=== PATIENT | male | born 1955 | race African-American/Black ===

== ENCOUNTER 2017-10-01 13:25 | Emergency (ER) | payer MEDICAID ==
[~2017-10-01] VITALS: Ht 177.8 cm; Wt 98.0 kg
[2017-10-01] MEDS ORDERED: MOME13HF2 IH (13:34)
[2017-10-01] MEDS ORDERED: IPRATROPIUM BROMIDE (0.02%) 0.5MG/2.5ML NEB HHN STA (14:37)
[2017-10-01] MEDS ORDERED: ALBUTEROL (0.083%) 2.5MG/3ML NEB HHN STA (14:37)
[2017-10-01] MEDS ORDERED: KETOROLAC 60MG/2ML VIAL IM STA (14:37)
[2017-10-01 14:46] VITALS: BP 152/92
[2017-10-01 15:30] LABS: BASOPHILS % 0.7 % (0.0-2.0); EOSINOPHILS % 1.5 % (0.0-5.0); HEMATOCRIT. 40.4 % (42.0-52.0); LYMPHOCYTES % 30.4 % (20.0-50.0); MEAN CORPUSCULAR HEMOGLOBIN 31.7 pg (28.0-32.0); MEAN CORPUSCULAR VOLUME 91.3 fL (80.0-94.0); MEAN PLATELET VOLUME 7.8 fl (7.4-10.4); MONOCYTES % 12.6 % (2.0-8.0); NEUTROPHILS % 54.8 % (40.0-76.0); PLATELET 186 x1000/uL (130-400); RED BLOOD CELL COUNT 4.43 mill/uL (4.7-6.1)
[2017-10-01 15:43] LABS: TROPONIN I 0.03 ng/mL (0.00-0.04)
== END 2017-10-01 17:06 | disposition home or self-care (01) ==
LOC: ER 14:48
DX: S39.012A Strain of muscle, fascia and tendon of lower back, initial encounter (principal); S20.219A Contusion of unspecified front wall of thorax, initial encounter; J45.901 Unspecified asthma with (acute) exacerbation; V89.2XXA Person injured in unspecified motor-vehicle accident, traffic, initial encounter; Y93.89 Activity, other specified; Y99.8 Other external cause status; Y92.410 Unspecified street and highway as the place of occurrence of the external cause
CPT/HCPCS: 36415; 71046; 72100; 80048; 84484; 85025; 93005; 94640; 96372; 99285; J1885; J7611

== ENCOUNTER 2017-10-31 20:41 | Emergency (ER) | payer MEDICAID ==
[~2017-10-31] VITALS: Ht 177.8 cm; Wt 85.0 kg
[~2017-10-31 20:41] MED LIST: MOME13HF2 IH
[2017-10-31 22:07] LABS: BASOPHILS % 0.7 % (0.0-2.0); EOSINOPHILS % 0.8 % (0.0-5.0); HEMATOCRIT. 40.9 % (42.0-52.0); LYMPHOCYTES % 18.8 % (20.0-50.0); MEAN CORPUSCULAR HEMOGLOBIN 31.1 pg (28.0-32.0); MEAN CORPUSCULAR VOLUME 91.2 fL (80.0-94.0); MEAN PLATELET VOLUME 7.1 fl (7.4-10.4); MONOCYTES % 7.7 % (2.0-8.0); PLATELET 306 x1000/uL (130-400); RED BLOOD CELL COUNT 4.49 mill/uL (4.7-6.1); RED CELL DISTRIBUTION WIDTH 13.6 % (11.6-14.6)
[2017-10-31 22:16] LABS: CHLORIDE 105 mEq/L (98-107)
[2017-11-01] MEDS ORDERED: SODIUM CHLORIDE 0.9% 1,000 ML IV SCH (00:18)
[2017-11-01] MEDS ORDERED: IPRATROPIUM/ALBUTEROL 0.5-3(2.5)MG/3ML NEB INH PRN (00:30)
[2017-11-01] MEDS ORDERED: MAGNESIUM/ALUMINUM HYDROXIDE/SIMETHICONE 30ML UDC PO PRN (00:30)
[2017-11-01] MEDS ORDERED: ACETAMINOPHEN 325MG TABLET PO PRN (00:30)
[2017-11-01] MEDS ORDERED: HYDROCODONE/ACETAMINOPHEN 5/325MG TABLET PO PRN (00:30)
[2017-11-01] MEDS ORDERED: LORAZEPAM 2MG/ML CPJ IV PRN (00:30)
[2017-11-01] MEDS ORDERED: ONDANSETRON HCL 4MG/2ML VIAL IV PRN (00:30)
[2017-11-01] MEDS ORDERED: CLONIDINE 0.1MG TABLET PO PRN (00:30)
[2017-11-01] MEDS ORDERED: ENOXAPARIN 40MG/0.4ML SYR SUBCUT SCH (00:30)
[2017-11-01 01:03] VITALS: BP 127/80
[2017-11-01] MEDS ORDERED: ASPIRIN 81MG TABLET PO ONE (01:15)
[2017-11-01] MEDS ORDERED: ASPIRIN 81MG EC TABLET PO SCH (09:00)
== END 2017-11-01 01:18 | disposition left against medical advice (07) ==
LOC: ER 20:41 → CANBEDREQ 11-01 03:59
DX: R55 Syncope and collapse (principal); I10 Essential (primary) hypertension; J45.909 Unspecified asthma, uncomplicated
CPT/HCPCS: 36415; 70450; 71045; 80048; 83880; 84484; 85025; 93005; 99285; J7030

== ENCOUNTER 2022-09-27 19:40 | Emergency (ER) | payer BC, MEDICAID ==
[~2022-09-27] VITALS: Ht 170.2 cm; Wt 76.0 kg
[~2022-09-27 19:40] MED LIST changes: +CARV12.545 PO; +LISI10TA26 PO; -MOME13HF2 IH
[2022-09-27] MEDS ORDERED: PREDNISONE 20MG TABLET PO STA (23:32)
[2022-09-27] MEDS ORDERED: IPRATROPIUM BROMIDE (0.02%) 0.5MG/2.5ML NEB HHN STA (23:32)
[2022-09-27] MEDS ORDERED: ALBUTEROL (0.083%) 2.5MG/3ML NEB HHN STA (23:32)
[2022-09-27] MEDS ORDERED: FUROSEMIDE 20MG TABLET PO ONE (23:45)
[2022-09-28] MEDS ORDERED: FUROSEMIDE 20MG TABLET PO NR (00:45)
[2022-09-28 01:30] VITALS: BP 143/97
== END 2022-09-28 02:05 | disposition left against medical advice (07) ==
LOC: ER 19:40
DX: R06.02 Shortness of breath (principal); R91.8 Other nonspecific abnormal finding of lung field; R94.31 Abnormal electrocardiogram [ECG] [EKG]; J45.909 Unspecified asthma, uncomplicated; I11.0 Hypertensive heart disease with heart failure; I50.9 Heart failure, unspecified
CPT/HCPCS: 71045; 93005; 94640; 99283; J7512